=== PATIENT | female | born 1965 | race Caucasian/White ===

== ENCOUNTER 2021-02-25 16:20 | Emergency (ER) | payer BC, OTHER ==
[~2021-02-25] VITALS: Ht 154.9 cm; Wt 124.7 kg
[2021-02-25 16:27] VITALS: BP 125/98
--- NOTE | 2021-02-25 18:17 | NUR ---
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
[2021-02-25] MEDS ORDERED: HYDROcodone/APAP 5/325 TABLET PO ONE (18:30)
[2021-02-25] MEDS ORDERED: HYDROcodone/APAP 5/325 TABLET ONE (18:34)
--- NOTE | 2021-02-25 18:36 | NUR ---
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
== END 2021-02-25 18:59 | disposition home or self-care (01) ==
LOC: ED 18:40
DX: M17.12 Unilateral primary osteoarthritis, left knee (principal); M25.562 Pain in left knee; I10 Essential (primary) hypertension; E03.9 Hypothyroidism, unspecified
CPT/HCPCS: 99283